=== PATIENT | male | born 1970 | race Hispanic/Latino ===

== ENCOUNTER 2017-11-19 11:17 | Observation (INO) | payer MEDICARE, MEDICAID ==
[2017-11-19 11:49] LABS: #Basophils 0.1 thou/uL (0.0-0.2); #Eosinphils 0.3 thou/uL (0.0-0.7); #Lymphocytes 2.7 thou/uL (1.20-3.40); #Monocytes 0.8 thou/uL (0.11-0.59); #Neutrophils 8.8 thou/uL (1.40-6.50); %Basophils 0.4 % (0.0-1.0); %Lymphocytes 21.3 % (21.0-51.0); %Monocytes 6.1 % (0.0-10.0); %Neutrophils 70.1 % (42.0-75.0); Hemoglobin 14.4 g/dL (14.0-18.0); Mean Platelet Volume 8.4 fL (7.4-10.4); Platelet Count 314 thou/uL (130-400); RBC Distribution Width 12.7 % (11.5-14.5); Red Blood Cell (RBC) Count 4.98 mill/uL (4.70-6.10); White Blood Cell (WBC) Count 12.6 thou/uL (4.8-10.8)
[2017-11-19 12:07] LABS: INR-International Normal Ratio 0.9; PTT 34.4 SEC (22.9-36.1); Prothrombin Time 12.6 SEC (12.0-14.7)
[2017-11-19 12:19] LABS: ALT (SGPT) 22 U/L (8-55); AST (SGOT) 16 U/L (5-34); Albumin 3.8 g/dL (3.5-5.0); Alkaline Phosphatase 133 U/L (40-150); Anion Gap 14 mmol/L (10-20); BUN (Urea Nitrogen) 13 mg/dL (8.9-20.6); Bilirubin, Total 0.5 mg/dL (0.2-1.2); CK (CPK) 157 U/L (30-200); CKMB 3.3 ng/mL (0-6.6); Calc. Creatinine Clearance 0 mL/min (70-130); Calcium 9.5 mg/dL (7.8-10.44); Carbon Dioxide 25 mmol/L (22-29); Chloride 100 mmol/L (98-107); Estimated GFR-MDRD 83; Glucose 278 mg/dL (70-105); Potassium 4.2 mmol/L (3.5-5.1); Protein, Total 7.8 g/dL (6.0-8.3); Sodium 135 mmol/L (136-145); Troponin I Less than 0.010 ng/mL (< 0.028)
--- NOTE | 2017-11-19 12:48 | CT ---
NONCONTRAST HEAD CT: HISTORY: Blurred vision. Drooping right eye. Loss of balance x3 days. Headache. COMPARISON: None. TECHNIQUE: A noncontrast head CT is performed from the skull base to the skull vertex. FINDINGS: No parenchymal hemorrhage. No extraaxial hematoma. No midline shift. Basilar cisterns are patent. Brain volume is age appropriate. Cortical huggins white matter differentiation is preserved. The ventricles and sulci are patent and symmetric. The calvarium is intact. Adequate aeration of the sinuses and mastoid air cells. Cavernous carotid atherosclerosis is noted. IMPRESSION: No acute intracranial process. POS: [facility]
[2017-11-19] MEDS ORDERED: Ondansetron HCl/PF 4 MG/2 ML Vial IVP PRN (13:26)
[2017-11-19] MEDS ORDERED: Zolpidem Tartrate 5 MG TAB PO PRN (13:26)
[2017-11-19] MEDS ORDERED: Sodium Chloride 0.9% 1,000 ML IV SCH (13:30)
[2017-11-19] MEDS ORDERED: Lorazepam 2 MG/ML VIAL SLOW IVP PRN (13:32)
[2017-11-19] MEDS ORDERED: Acetaminophen 325 MG TAB PO PRN (13:32)
--- NOTE | 2017-11-19 13:42 | PDOC.EVN ---
Event Note - Event Note Event Note: H&P DICTATED #[id number]
[2017-11-19] MEDS ORDERED: Metoclopramide HCl 10 MG/2 ML VIAL ONE (14:07)
[2017-11-19] MEDS ORDERED: diphenhydrAMINE 50 MG/ML VIAL ONE (14:07)
--- NOTE | 2017-11-19 14:41 | ULT ---
BILATERAL CAROTID DUPLEX ULTRASOUND: DATE: 11/19/17 HISTORY: TIA. TECHNIQUE: Mandujano scale ultrasound with color flow and spectral Doppler imaging of the extracranial carotid artery systems performed. FINDINGS: There is a small amount of plaque formation in the carotid bulbs close to the origin of the ECAs on b oth sides. The peak systolic velocity in the right ICA measures 68 cm/second with an end-diastolic velocity of 1 7 cm/second and a systolic ratio of 0.71. The peak systolic velocity in the left ICA measures 73 cm/second with an end-diastolic velocity of 19 cm/second and a systolic ratio of 0.89. Flow in both vertebral arteries remains antegrade. IMPRESSION: No evidence of hemodynamically significant stenosis in either ICA. POS: [facility]
[2017-11-19 15:01] LABS: Hemoglobin A1c 10.7 % (4.0-6.0)
[2017-11-19 15:29] LABS: Folate (Folic Acid) 7.1 ng/mL (7.0-31.4)
[2017-11-19 16:20] VITALS: BMI 67.3
--- NOTE | 2017-11-19 16:35 | HP ---
DATE OF ADMISSION: 11/19/2017 CHIEF COMPLAINT: Blurry vision and headaches. HISTORY OF PRESENT ILLNESS: This is a 47-year-old male, who states that, as of this morning, he star fdeerico to have severe significant headaches, gait disturbance as well as visual changes. He was noted t o have double vision. The patient states that he had one of these episodes a few years back when he was admitted to [facility] and he was told that he had a calcification that was obstructing his retinal vein is what the patient describes it as. The patient states that this episode feels very si milar to the last time; however, this time around, he was having some weakness, headaches as well as gait disturbance. Patient had a stat CT scan in the ER done, which was negative for any acute bleed or any acute intracranial pathology. The patient states that currently he is keeping one of his eyes closed as to avoid the double vision effect that him having sensations of headaches have come down t o 4/10 and pain constant throughout the head, worse where 8/10 earlier today. The patient, otherwise , states that he sees Dr. Sanchez. Patient has had recent medication changes, but he is not sure wha t he takes exactly. He has not brought his medications with him. Patient currently denies any other associated symptoms. No other alleviating or aggravating factors noted. at bedside seen in [facility] ER. All questions answered. ALLERGIES: IBUPROFEN. PAST MEDICAL HISTORY: Hypertension, visual issues, headaches, hyperlipidemia, and morbid obesity. FAMILY HISTORY: Positive for diabetes mellitus, hypertension as well as heart disease. SOCIAL HISTORY: The patient has been smoking a pack a day for about the past 2-3 years. Occasional alcohol. No other illicit drug use noted. HOME MEDICATIONS: Please see MAR. Patient has not brought his medications with him today. REVIEW OF SYSTEMS: All systems reviewed. Pertinent positive in the HPI, otherwise negative. PHYSICAL EXAMINATION: VITAL SIGNS: Blood pressure is 178/88, temperature of 98, respiratory rate of 18, heart rate of 88. GENERAL: Patient lying in bed with one eye closed, in mild distress, morbidly obese. HEENT: Pupils equal, round, and reactive to light and accommodation. Blurry vision noted. The kaykay ent states that he is seeing double. Able to track properly. Nystagmus not noted. Anicteric sclera e. Oral cavity moist and pink. NECK: Nontender, mobile thyroid. CARDIOVASCULAR EXAM: Regular rate and rhythm. S1 and S2. No murmurs, rubs, or gallops appreciated. PULMONARY EXAM: Aerating well. No respiratory distress. Mildly increased AP diameter; however, gudelia ar to auscultation bilaterally. ABDOMINAL EXAM: Rotund, positive bowel sounds, soft, nontender. No rebound or guarding noted. EXTREMITIES: A 2+ peripheral pulses bilaterally. A 1+ pitting edema in bilateral lower extremities. No cyanosis or clubbing noted. NEUROLOGICAL: Cranial nerves II-XII intact. Visual vera intact; however double vision per patient . No loss of sensory function. Answers questions appropriately. SKIN: Normal turgor. No rash noted. LABORATORY DATA: CBC within normal limits. BMP within normal limits. PT/INR within normal limits. CT of the brain done at ER, which shows no acute intracranial process. ASSESSMENT AND PLAN: 1. Transient ischemic attack, rule out cerebrovascular accident. 2. Visual changes. 3. Headaches. 4. Antalgic gait. 5. Hyperlipidemia. 6. Hypertension. 7. Hyperglycemia. Admit the patient to telemetry observation. We will consult Neurology. We will also obtain an echoc ardiogram, MRI, and carotid ultrasounds. We will check the patient for A1c and make sure he is not a diabetic. Telemetry monitoring. Patient wishes to remain a FULL CODE after discussion. GI and DVT prophylaxis with Pepcid and heparin. Again, case and plan discussed with the patient at [facility]. They understand and agree with this plan.
--- NOTE | 2017-11-19 20:18 | CON ---
DATE OF CONSULTATION: 11/19/2017 CONSULTING PHYSICIAN: Hospitalist service. IMPRESSION: 1. 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 2. Morbid obesity. 3. Diabetes. PLAN: Sed rate to rule out temporal arteritis. HISTORY OF PRESENT ILLNESS: Mr. Ridley is a 47-year-old man who came in with complaints o f acute onset of orbital pain and double vision that causes a bit of dizziness as well. It is not as sociated with any slurred speech or difficulty swallowing. Denies any facial numbness, lateralized w eakness or numbness of the extremities, never anything like this before. The intensity of the pain h as diminished since yesterday. He was seen in the emergency room and had a CT scan of the brain done , nothing remarkable was found. His carotid ultrasound shows no stenosis. His vital signs have been stable with normal blood pressures since admission. Routine CBC, coags and chemistries were only re markable for the hyperglycemia. PAST MEDICAL HISTORY: As listed above. ALLERGIES: IBUPROFEN. SOCIAL HISTORY: Unremarkable. FAMILY HISTORY: Noncontributory. REVIEW OF SYSTEMS: No complaints of chest pain, shortness of breath, abdominal pain, nausea or vomit ing. PHYSICAL EXAMINATION: GENERAL: He is a morbidly obese, middle-aged man, lying in bed, in no distress. VITAL SIGNS: Stable. He is afebrile. HEENT: Pupils are equal and minimally reactive. Conjunctivae are clear. Oropharynx clear. Cranium , nontender to touch. NECK: Supple. EXTREMITIES: No cyanosis. NEUROLOGIC: He is alert and cooperative. His speech is fluent and clear. Cranial nerve exam showed mild impairment of adduction of the right eye and elevation of the right eye compared to the left. No significant ptosis was seen. Sensation of the face was intact. Facial movements were symmetric. He had a normal swallowing response and the remainder of his neurologic exam was nonfocal. SUMMARY: I suspect this is a diabetic complication with a third nerve injury. The prognosis is good for complete recovery. He is too large to go on the MRI for further testing. I do not think it is necessary at this point regardless.
[2017-11-19] MEDS ORDERED: Simvastatin 40 MG TAB PO SCH (21:00)
[2017-11-19] MEDS: Metoprolol Tartrate 25 MG TAB PO SCH (21:59)
[2017-11-19] MEDS: Heparin 5,000 UNITS/ML VIAL SC SCH (22:00)
[2017-11-19] MEDS: Famotidine 20 MG TAB PO SCH (22:00)
[2017-11-20 04:45] LABS: #Basophils 0.1 thou/uL (0.0-0.2); #Eosinphils 0.3 thou/uL (0.0-0.7); #Lymphocytes 2.4 thou/uL (1.20-3.40); #Monocytes 0.9 thou/uL (0.11-0.59); %Basophils 0.5 % (0.0-1.0); %Eosinophils 2.7 % (0.0-10.0); %Lymphocytes 22.8 % (21.0-51.0); %Monocytes 8.7 % (0.0-10.0); %Neutrophils 65.4 % (42.0-75.0); Hemoglobin 14.2 g/dL (14.0-18.0); Mean Corpuscular HGB CONC 32.2 g/dL (32.0-36.0); Mean Corpuscular Hemoglobin 28.1 pg (27.0-31.0); Mean Corpuscular Volume 87.3 fl (80.0-94.0); Mean Platelet Volume 8.6 fL (7.4-10.4); Platelet Count 299 thou/uL (130-400); RBC Distribution Width 12.9 % (11.5-14.5); Red Blood Cell (RBC) Count 5.03 mill/uL (4.70-6.10); White Blood Cell (WBC) Count 10.6 thou/uL (4.8-10.8)
[2017-11-20 05:11] LABS: Anion Gap 10 mmol/L (10-20); BUN (Urea Nitrogen) 13 mg/dL (8.9-20.6); Calc. Creatinine Clearance 285 mL/min (70-130); Calcium 9.2 mg/dL (7.8-10.44); Carbon Dioxide 28 mmol/L (22-29); Chloride 104 mmol/L (98-107); Estimated GFR-MDRD Greater than 90; Glucose 225 mg/dL (70-105); Potassium 4.1 mmol/L (3.5-5.1); Sodium 138 mmol/L (136-145)
[2017-11-20] MEDS: Metoprolol Tartrate 25 MG TAB PO SCH (11:28)
[2017-11-20] MEDS: Heparin 5,000 UNITS/ML VIAL SC SCH (11:28)
[2017-11-20] MEDS: Famotidine 20 MG TAB PO SCH (11:28)
[2017-11-20 11:46] VITALS: BP 185/87; TEMP 98.3
--- NOTE | 2017-11-20 13:39 | PDOC.EVN ---
Event Note - Event Note Event Note: DC SUMMARY #[id number]
--- NOTE | 2017-11-20 21:04 | DIS ---
DATE OF ADMISSION: 11/19/2017 DATE OF DISCHARGE: 11/20/2017 ADMITTING DIAGNOSES: Headaches as well as double vision, morbid obesity, hypertension, hyperlipidemi a, diabetes mellitus type 2. DISCHARGE DIAGNOSES: Headaches and double vision, likely secondary to diabetic nerve damage, morbid obesity, hypertension, and hyperlipidemia. HOSPITAL COURSE: This is a 47-year-old male who was admitted to Internal Medicine team complaining o f neurological symptoms complaint. He was seen by Neurology as well. The patient had a CT scan done which was negative for any acute intracranial process. He had a carotid ultrasound done as well, wh ich was negative for any severe significant carotid artery stenosis, had neurological evaluation and cleared from Neurology at time of discharge. The patient's BMI was 67. He was too heavy for the MRI , thus an MRI was not possible. The patient was advised to have an MRI done outpatient and was advis ed to also follow a proper diet for weight loss. The patient's condition at point in time of dischar ge was stable. He denied any nausea, vomiting, diarrhea, constipation, chest pain, fevers, or shortn ess of breath, and was to follow up with PCP within 1 week to have his insulins readjusted as his A1c was found to be above 10. DISPOSITION: Home. FOLLOWUP: Follow up with PCP within 1 week. DIET: Low fat, low calorie, high fiber diet. ACTIVITY: As tolerated with assistance as appropriate. MEDICATIONS: Resume home medications. CONDITION: Stable. PROGNOSIS: Guarded. Case and plan discussed with patient and at length. They understand and agree with this plan.
== END 2017-11-20 12:51 | disposition home or self-care (01) ==
LOC: ERS 11:17 → 2SE 13:03
PROVIDERS: ADMIT Internal Medicine; ATTEND Internal Medicine
DX: H53.8 Other visual disturbances (principal); H53.2 Diplopia; R51 Headache; R26.9 Unspecified abnormalities of gait and mobility; I10 Essential (primary) hypertension; E78.5 Hyperlipidemia, unspecified; F17.210 Nicotine dependence, cigarettes, uncomplicated; E11.9 Type 2 diabetes mellitus without complications; H49.01 Third [oculomotor] nerve palsy, right eye; E66.01 Morbid (severe) obesity due to excess calories; Z68.44 Body mass index [BMI] 60.0-69.9, adult; Z79.4 Long term (current) use of insulin; Z79.899 Other long term (current) drug therapy; Z88.6 Allergy status to analgesic agent
CPT/HCPCS: 70450; 80048; 82550; 82553; 82607; 82746; 82962 ×2; 83036; 83880; 84484; 85025; 85610; 85652; 85730; 93005; 93880; 96361; 96374; 96375; 99285; G0378; 36415; 36416; 80053; 84443; J1200; J1644; J2765

== ENCOUNTER 2018-06-29 18:39 | Emergency (ER) | payer MEDICAID, MEDICARE ==
[2018-06-29] MEDS ORDERED: Acetaminophen 500 MG TAB ONE (19:09)
[2018-06-29 19:29] LABS: Bilirubin Negative (Negative); Blood, Urine Moderate (Negative); Clarity CLEAR (Clear); Glucose, Urine (Dipstick) >=1000 mg/dL (Negative); Leukocyte Negative (Negative); Nitrite Negative (Negative); Protein, Urine (Dipstick) 300 mg/dL (Neg-Trace); Specific Gravity, Urine 1.023 (1.002-1.036); pH, Urine 5.5 (5.0-9.0)
[2018-06-29 19:32] LABS: Bacteria/HPF None Seen HPF (None Seen); Hyaline Casts/LPF 0-3 HYALINE CAST LPF (0-3 Hyaline); Squamous Epithelial 0-3 HPF (0-3); WBC/HPF 0-3 HPF (0-3)
--- NOTE | 2018-06-29 20:40 | CT ---
CT ABDOMEN AND PELVIS PERFORMED WITHOUT CONTRAST ENHANCEMENT: HISTORY: Patient with abdominal and back pain, radiating to the right buttock region. Also with right testicu lar pain. FINDINGS: ABDOMEN: The lung bases are clear of an infiltrative process. Once again, the patient is noted to h ave dextrocardia with situs inversus. The liver, spleen, pancreas, and gallbladder regions appear un remarkable. The right and left adrenal glands and the right and left kidneys are normal in size. There are no re nal calculi demonstrated. No ureteral calculi. No obstruction. No significant periaortic or mesent martin lymphadenopathy. PELVIS: The appendix is normal. There is no evidence of adenopathy, mass, or free fluid. There are some mild arthritic changes of the spine. Vacuum disk phenomenon is seen at L5-S1. IMPRESSION: 1. Dextrocardia with situs inversus. 2. No renal or ureteral calculi. 3. No acute abnormalities of the abdomen or pelvis. POS: [facility]
[2018-06-29] MEDS ORDERED: Morphine 4 MG/ML VIAL ONE (21:12)
[2018-06-29] MEDS ORDERED: Dexamethasone 4 mg/ml Vial ONE (21:13)
--- NOTE | 2018-06-29 21:34 | CT ---
CT LUMBAR SPINE WITHOUT CONTRAST ENHANCEMENT: HISTORY: Back pain and right-sided sciatica. FINDINGS: The vertebral bodies are normal in height. There is vacuum disk phenomenon at the L5-S1 level. Ther e is a somewhat rudimentary S1-S2 disk level. Overall, there is suggestion of slight congenital anahi l narrowing, with slightly short appearing pedicles. T12-L1: Unremarkable. L1-L2: Unremarkable. L2-L3: Borderline canal stenosis with degenerative facet changes. L3-L4: The canal again shows what appears to be some mild stenosis. It is very difficult to differe ntiate the thecal sac from disk material. L4-L5: Just at or above this level, there appears to be a moderate degree of canal stenosis. There are laminectomy changes at L5. L5-S1: Disk bulge is present. The canal appears mildly stenotic. There appears to be some mild rig ht-sided foraminal narrowing. IMPRESSION: 1. Somewhat congenitally narrowed appearing canal. 2. Postoperative laminectomy changes of L5. 3. There appears to be a moderate degree of canal narrowing at the L4-L5 level with degenerative fac et changes. 4. There is also suggestion of some mild right-sided foraminal narrowing at L5-S1 and a mild degree of canal stenosis at this level. MRI would be helpful in better evaluating the degree of stenosis in this case, given the somewhat limited evaluation obtained due to body habitus. POS: [facility]
== END 2018-06-29 21:23 | disposition home or self-care (01) ==
LOC: ERS 18:39
DX: M54.41 Lumbago with sciatica, right side (principal); E11.9 Type 2 diabetes mellitus without complications; I10 Essential (primary) hypertension; E78.5 Hyperlipidemia, unspecified; F17.210 Nicotine dependence, cigarettes, uncomplicated; Z79.4 Long term (current) use of insulin; Z79.899 Other long term (current) drug therapy
CPT/HCPCS: 72131; 74176; 81003; 81015; 96372; J1100; J2270

== ENCOUNTER 2018-07-15 16:23 | Emergency (ER) | payer MEDICARE, MEDICAID | END 2018-07-15 18:21 | disposition home or self-care (01) | LOC: ERS 16:23 | DX: B02.9 Zoster without complications (principal); E11.9 Type 2 diabetes mellitus without complications; I10 Essential (primary) hypertension; E78.5 Hyperlipidemia, unspecified; F17.210 Nicotine dependence, cigarettes, uncomplicated; Z79.4 Long term (current) use of insulin; Z79.899 Other long term (current) drug therapy | CPT/HCPCS: 99283 ==

== ENCOUNTER 2019-10-06 05:28 | Emergency (ER) | payer MEDICARE, MEDICAID | END 2019-10-06 06:01 | disposition home or self-care (01) | LOC: ERS 05:28 | DX: L89.329 Pressure ulcer of left buttock, unspecified stage (principal); E11.622 Type 2 diabetes mellitus with other skin ulcer; I10 Essential (primary) hypertension; E78.5 Hyperlipidemia, unspecified; F17.210 Nicotine dependence, cigarettes, uncomplicated | CPT/HCPCS: 99283 ==

== ENCOUNTER 2022-04-20 23:31 | Emergency (ER) | payer MEDICARE, MEDICAID | END 2022-04-21 01:35 | disposition home or self-care (01) | LOC: ERS 23:31 | DX: M27.2 Inflammatory conditions of jaws (principal); E11.9 Type 2 diabetes mellitus without complications; E78.5 Hyperlipidemia, unspecified; I10 Essential (primary) hypertension; F17.210 Nicotine dependence, cigarettes, uncomplicated | CPT/HCPCS: 99282 ==

== ENCOUNTER 2022-10-28 17:30 | Emergency (ER) | payer MEDICAID, MEDICARE ==
[2022-10-28] MEDS ORDERED: Proparacaine 0.5% Opth 15 ML BOT ONE (17:53)
[2022-10-28] MEDS ORDERED: Fluorescein Opthalmic Strip ONE (17:53)
== END 2022-10-28 18:43 | disposition home or self-care (01) ==
LOC: ERS 17:30
DX: H10.9 Unspecified conjunctivitis (principal); E11.9 Type 2 diabetes mellitus without complications; E78.5 Hyperlipidemia, unspecified; I10 Essential (primary) hypertension; E66.9 Obesity, unspecified; F17.210 Nicotine dependence, cigarettes, uncomplicated; Z79.899 Other long term (current) drug therapy; Z79.4 Long term (current) use of insulin; Z79.85 Long-term (current) use of injectable non-insulin antidiabetic drugs
CPT/HCPCS: 99282

== ENCOUNTER 2024-08-05 15:48 | Emergency (ER) | payer OTHER, MEDICAID | END 2024-08-05 16:22 | disposition home or self-care (01) | LOC: ERS 15:48 | DX: T16.2XXA Foreign body in left ear, initial encounter (principal); E11.9 Type 2 diabetes mellitus without complications; E78.5 Hyperlipidemia, unspecified; I10 Essential (primary) hypertension; F17.210 Nicotine dependence, cigarettes, uncomplicated; Z79.899 Other long term (current) drug therapy; W44.8XXA Other foreign body entering into or through a natural orifice, initial encounter | CPT/HCPCS: 99282 ==